=== PATIENT | female | born 1955 | race Caucasian/White ===

== ENCOUNTER → 2025-01-29 09:59 | Outpatient (REF) | payer OTHER, SELFPAY | LOC: RCS 09:59 | PROVIDERS: ATTENDING PHYSICIAN Nuclear Medicine Nuclear Cardiology; FAMILY PHYSICIAN Student in an Organized Health Care Education/Training Program | DX: E78.2 Mixed hyperlipidemia (principal); I25.10 Atherosclerotic heart disease of native coronary artery without angina pectoris | CPT/HCPCS: 93306 ==